=== PATIENT | female | born 1975 | race Caucasian/White ===

== ENCOUNTER 2017-06-30 23:15 | Emergency (ER) | payer SELFPAY ==
[~2017-06-30] VITALS: Ht 160 cm; Wt 72.7 kg
[2017-06-30] MEDS ORDERED: SUBO2MIS SL (23:23)
[2017-07-01] VITALS: BP 103/50; PULSE 74; RESP 18; O2SAT 98
--- NOTE | 2017-07-01 00:35 | PD ---
HPI Chief Complaint: Skin Problem Time Seen by Provider: 00:15 Travel History International Travel<30 days: No Contact w/Intl Traveler<30days: No Traveled to known affect area: No History of Present Illness HPI The patient is a 42 year old female who presents to the [facility] emergency department with a history of edema of her upper and lower extremities that has been gradually worsening over the last 2 months. She reports that she went to an emergency department approximately a week ago for evaluation and was told that she should take Lasix. The patient was concerned that she is dehydrated, therefore she did not take the prescription. She reports that she does not eat a well-balanced diet. She reports that she only drinks fluids when she eats, this is why she feels she is likely dehydrated. She denies having any vomiting or diarrhea. She reports that she last used injection drugs on Saturday. She reports that she used methamphetamine, cocaine, and Xanax. The patient reports that she has been tested for hepatitis and was negative. She reports that 10 years ago she had a abnormal thyroid testing done , however she never followed up regarding this. She denies having a primary care physician. She denies having any recent fevers, cough or congestion, neck pain, chest pain, shortness of breath, abdominal pain, urinary symptoms, or neurologic symptoms. [facility] Past Medical History Narrative Medical The patient's past medical history is significant for polysubstance abuse, history of thyroid disorder diagnosed 10 years ago without any follow-up, history of bipolar disorder. The patient reports a prior history of opiate abuse, however she quit using 8 years ago and is currently on Subutex. Bipolar Disorder: Yes Thyroid Disease: Yes Tetanus Vaccination: < 5 Years Influenza Vaccination: No ?: Not Past Surgical History Narrative Surgical The patient's past surgical history is reportedly none. Surgical History: No Previous Surgery Social History Alcohol Use: No Tobacco Use: Yes Substance Use: Yes (Meth, cocaine, Xanax) Allergies-Medications (Allergen,Severity, Reaction): Coded Allergies: amoxicillin (Verified Allergy, Unknown, 06/30/17) skin turns red Reported Meds & Prescriptions Reported Meds & Active Scripts Active Levothyroxine (Levothyroxine Sodium) 50 Mcg Tab 50 Mcg PO DAILY Reported Suboxone Sublingual Film (Buprenorphine-Naloxone Sublingual Film) 2-0.5 Mg Film 1 Film SL Unique ID number required: Review of Systems Except as stated in HPI: all other systems reviewed are Neg General / Constitutional: No: Fever Eyes: No: Visual changes HENT: No: Headaches Cardiovascular: Positive: Edema, No: Chest Pain or Discomfort, Dyspnea on exertion Respiratory: No: Shortness of Breath Gastrointestinal: No: Abdominal Pain Genitourinary: No: Dysuria Musculoskeletal: No: Pain Skin: No Rash Neurologic: No: Weakness, Focal Abnormalities, Change in Mentation, Slurred Speech, Sensory Disturbance Psychiatric: No: Depression Endocrine: No: Polydipsia Hematologic/Lymphatic: No: Easy Bruising Physical Exam Narrative General: The patient is a well-developed well-nourished female in no acute distress. Head and Neck exam: Head is normocephalic atraumatic. Eyes: EOMI, pupils are equal round and reactive to light. Nose: Midline septum with pink mucous membranes Mouth: Dentition unremarkable. Moist mucus membranes. Posterior oropharynx is not erythematous. No tonsillar hypertrophy. Uvula midline. Airway patent. Neck: No palpable lymphadenopathy. No nuchal rigidity. No thyromegaly. Cardiovascular: Regular rate and rhythm without murmurs, gallops, or rubs. Lungs: Clear to auscultation bilaterally. No wheezes, rhonchi, or rales. Abdomen: Soft, without tenderness to palpation in all 4 quadrants of the abdomen. No guarding, rebound, or rigidity. Normal bowel sounds are audible. No tenderness on palpation of McBurney's point. Negative Mackenzie sign. Extremities: No clubbing or cyanosis. The patient has trace edema in her hands bilaterally, 1+ edema in her legs bilaterally. No calf tenderness on palpation. 2+ pulses in all 4 extremities. Back: No spinous process tenderness to palpation. No costovertebral angle tenderness to palpation. Neurologic Exam: Cranial nerves II through XII are intact, strength is 5/5 in all 4 extremities, intact sensation over all dermatomes. The patient is alert and oriented to person, place, time, and situation. Skin Exam: No rash noted. Intact skin that is warm and dry. Data Data Last Documented VS Vital Signs Date Time Temp Pulse Resp B/P (MAP) Pulse Ox O2 Delivery O2 Flow Rate FiO2 07/01/17 00:57 18 98 Room Air 07/01/17 00:00 74 103/50 (67) Orders Orders Complete Blood Count With Diff (07/01/17 00:30) Comprehensive Metabolic Panel (07/01/17 00:30) Creatine Kinase (Cpk) (07/01/17 00:30) Ckmb (Isoenzyme) Profile (07/01/17 00:30) Troponin I (07/01/17 00:30) B-Type Natriuretic Peptide (07/01/17 00:30) Prothrombin Time / Inr (Pt) (07/01/17:30) Act Partial Throm Time (Ptt) (07/01/17 00:30) Lipase (07/01/17:30) Urinalysis - C+S If Indicated (07/01/17:30) Magnesium (Mg) (07/01/17:30) Chest, Single Ap (07/01/17:30) Iv Access Insert/Monitor (07/01/17 00:30) Ecg Monitoring (07/01/17 00:30) Oximetry (07/01/17 00:30) Ed Urine Pregnancytest Poc (07/01/17 00:30) Drug Screen, Random Urine (07/01/17 00:30) Alcohol (Ethanol) (07/01/17 00:30) Salicylates (Aspirin) (07/01/17 00:30) Tylenol (Acetaminophen) (07/01/17 00:30) Thyroid Stimulating Hormone (07/01/17 00:44) CKMB (07/01/17 00:44) CKMB% (07/01/17 00:44) Sodium Chlor 0.9% 1000 Ml Inj (Ns 1000 M (07/01/17 02:30) Levothyroxine (Synthroid) (07/01/17 02:30) Sodium Chlor 0.9% 1000 Ml Inj (Ns 1000 M (07/01/17 02:30) Labs Laboratory Tests Test 07/01/17 00:44 07/01/17 01:50 White Blood Count 10.2 TH/MM3 Red Blood Count 3.64 MIL/MM3 Hemoglobin 10.3 GM/DL Hematocrit 30.3 % Mean Corpuscular Volume 83.3 FL Mean Corpuscular Hemoglobin 28.3 PG Mean Corpuscular Hemoglobin Concent 33.9 % Red Cell Distribution Width 17.0 % Platelet Count 433 TH/MM3 Mean Platelet Volume 9.2 FL Neutrophils (%) (Auto) 57.6 % Lymphocytes (%) (Auto) 29.8 % Monocytes (%) (Auto) 7.4 % Eosinophils (%) (Auto) 4.1 % Basophils (%) (Auto) 1.1 % Neutrophils # (Auto) 5.9 TH/MM3 Lymphocytes # (Auto) 3.1 TH/MM3 Monocytes # (Auto) 0.8 TH/MM3 Eosinophils # (Auto) 0.4 TH/MM3 Basophils # (Auto) 0.1 TH/MM3 CBC Comment DIFF FINAL Differential Comment Urine Color YELLOW Urine Turbidity HAZY Urine pH 5.5 Urine Specific [place] 1.032 Urine Protein 30 mg/dL Urine Glucose (UA) NEG mg/dL Urine Ketones NEG mg/dL Urine Occult Blood NEG Urine Nitrite NEG Urine Bilirubin NEG Urine Urobilinogen 2.0 MG/DL Urine Leukocyte Esterase TRACE Urine RBC 1 /hpf Urine WBC 3 /hpf Urine Squamous Epithelial Cells 8 /hpf Urine Bacteria OCC /hpf Urine Mucus MANY /lpf Microscopic Urinalysis Comment CULT NOT INDICATED Blood Urea Nitrogen 19 MG/DL Creatinine 1.41 MG/DL Random Glucose 86 MG/DL Total Protein 10.4 GM/DL Albumin 4.1 GM/DL Calcium Level 8.8 MG/DL Magnesium Level 2.2 MG/DL Alkaline Phosphatase 120 U/L Aspartate Amino Transf (AST/SGOT) 118 U/L Alanine Aminotransferase (ALT/SGPT) 55 U/L Total Bilirubin 0.8 MG/DL Sodium Level 136 MEQ/L Potassium Level 4.3 MEQ/L Chloride Level 103 MEQ/L Carbon Dioxide Level 29.7 MEQ/L Anion Gap 3 MEQ/L Estimat Glomerular Filtration Rate 41 ML/MIN Total Creatine Kinase 1078 U/L Creatine Kinase MB 9.7 NG/ML Creatine Kinase MB % 0.9 % Troponin I LESS THAN 0.02 NG/ML B-Type Natriuretic Peptide 9 PG/ML Lipase 135 U/L Thyroid Stimulating Hormone 3rd Gen GREATER THAN 100.000 uIU/ML Salicylates Level 3.2 MG/DL Urine Opiates Screen NEG Acetaminophen Level LESS THAN 2.0 MCG/ML Urine Barbiturates Screen NEG Urine Amphetamines Screen POS Urine Benzodiazepines Screen POS Urine Cocaine Screen POS Urine Cannabinoids Screen NEG Ethyl Alcohol Level LESS THAN 3 MG/DL Prothrombin Time 11.6 SEC Prothromb Time International Ratio 1.1 RATIO Activated Partial Thromboplast Time 28.8 SEC MDM Medical Decision Making Medical Screen Exam Complete: Yes Emergency Medical Condition: Yes Medical Record Reviewed: Yes Interpretation(s) Last Impressions Chest X-Ray 07/01/17 0030 Signed Impressions: Service Date/Time: Saturday, July 01, 2017 00:47 - CONCLUSION: No acute disease. Elio Barkley MD Differential Diagnosis Congestive heart failure, versus renal failure, versus hypoalbuminemia, versus liver failure, versus hypothyroid disorder with myxedema Narrative Course During the course of the patient's emergency department visit, the patient's history, examination, and differential diagnosis were reviewed with the patient. The patient was placed on a bus driver/monitor with oximetry and frequent blood pressure monitoring. The patient had IV access obtained and blood work sent for analysis. The patient was initially provided normal saline 1 L IV fluid bolus which was repeated 1, levothyroxine 50 mcg p.o. 1 after TSH was noted to be elevated The patient's laboratory studies were reviewed and remarkable for a white count of 10.2, hemoglobin 10.3, platelets 433 with a normal differential, CMP is remarkable for an anion gap of 3, BUN 19, creatinine 1.41, AST 118, ALT 55, alk phos 120, CPK 1078 which is likely related to the patient's methamphetamine and cocaine use, however not diagnostic for rhabdomyolysis as this value is not 5 times the upper limits of normal. Troponin I is less than 0.02, BNP is 9, total protein 10.4, lipase 135, TSH greater than 100, PT 11.6, PTT 28.8, urinalysis is unremarkable, urine drug screen is positive for amphetamines, benzodiazepines, cocaine. Alcohol less than 3, acetaminophen less than 2, salicylate 3.2. Radiology studies were reviewed and remarkable for a chest x-ray that shows no acute cardiopulmonary disease. The patient has a history of IV drug use and was instructed regarding the possibility of hepatitis. She was instructed to follow-up with the local [place] clinic for additional testing. The patient will be given a prescription for levothyroxine which could be contributing to her edema. The patient is instructed to follow-up with a primary care physician in the next couple of days. The patient is resting comfortably and feels better, is alert and in no distress. The patient's results and examination findings were discussed with the patient. The repeat examination is unremarkable and benign. The history, exam, diagnostic testing, and current condition do not suggest any significant pathology to warrant further testing, continued ED treatment, admission, or surgical evaluation at this point. The vital signs have been stable. The patient does not have uncontrollable pain, intractable vomiting, or other significant symptoms. The patient's condition is stable and appropriate for discharge. The patient will pursue further outpatient evaluation with a primary care physician or other designated or consulting physician as indicated in the discharge instructions. The patient expressed understanding and was agreeable with this plan. Diagnosis Primary Impression: Hypothyroidism Qualified Codes: E03.9 - Hypothyroidism, unspecified Additional Impressions: Peripheral edema Elevated liver enzymes Referrals: [facility] 2 days Patient Instructions: Edema (ED), General Instructions, Hypothyroidism (ED) Additional Instructions: The patient was given an outpatient lab slip for viral hepatitis testing. Med/Other Pt SpecificInfo: Prescription(s) given Scripts Levothyroxine (Levothyroxine) 50 Mcg Tab 50 MCG PO DAILY for Thyroid, #30 TAB 0 Refills Prov: Sanjana Islas MD 07/01/17 Disposition: 01 DISCHARGE HOME Condition: Stable Sanjana Islas MD Jul 01, 2017 00:35
--- NOTE | 2017-07-01 00:53 | RADRPT ---
EXAM DATE/TIME: 07/01/2017 00:47 [facility] COMPARISON: No previous studies available for comparison. INDICATIONS : Chest pain x 1 month MEDICAL HISTORY : Thyroid disease SURGICAL HISTORY : None. ENCOUNTER: Initial ACUITY: 1 month PAIN SCORE: 7/10 LOCATION: Bilateral chest FINDINGS: The patient is rotated to the right which accentuates the cardiac silhouette. The lungs are clear. Th e osseous structures are intact. CONCLUSION: No acute disease. Elio Barkley MD on July 01, 2017 at 0:50 Board Certified Radiologist. This report was verified electronically.
[2017-07-01 00:57] VITALS: RESP 18; O2SAT 98
[2017-07-01 01:13] LABS: BACTERIA, URINE OCC /hpf; BILIRUBIN, URINE NEG (NEG); BLOOD, URINE NEG (NEG); GLUCOSE,URINE NEG (NEG); KETONE, URINE NEG (NEG); MUCUS URINE MANY /lpf (OCC); NITRITE,URINE NEG (NEG); PH, URINE 5.5 (5.0-8.5); SQUAMOUS EPITHELIAL CELL URINE 8 /hpf (0-5); URINE COLOR YELLOW (YELLW/STRAW); URINE LEUKOCYTE ESTERASE TRACE (NEG)
[2017-07-01 01:28] LABS: AUTOMATED NEUTROPHIL # 5.9 TH/MM3 (1.8-7.7); BASOPHIL # 0.1 TH/MM3 (0-0.2); BASOPHIL % 1.1 % (0.0-2.0); EOSINOPHIL # 0.4 TH/MM3 (0-0.4); EOSINOPHIL % 4.1 % (0.0-4.0); HEMATOCRIT 30.3 % (35.0-46.0); HEMOGLOBIN 10.3 GM/DL (11.6-15.3); LYMPH % 29.8 % (9.0-44.0); LYMPHOCYTE # 3.1 TH/MM3 (1.0-4.8); MEAN CELL VOLUME 83.3 FL (80.0-100.0); MEAN CORPUSCULAR HEMOGLOBIN 28.3 PG (27.0-34.0); MEAN CORPUSCULAR HGB CONC 33.9 % (32.0-36.0); MEAN PLATELET VOLUME 9.2 FL (7.0-11.0); MONO % 7.4 % (0.0-8.0); MONOCYTE # 0.8 TH/MM3 (0-0.9); NEUT % 57.6 % (16.0-70.0); PLATELET COUNT 433 TH/MM3 (150-450); RED BLOOD COUNT 3.64 MIL/MM3 (4.00-5.30); WHITE BLOOD COUNT 10.2 TH/MM3 (4.0-11.0)
[2017-07-01 01:44] LABS: ACETAMINOPHEN LESS THAN 2.0 MCG/ML (10.0-30.0); ALBUMIN 4.1 GM/DL (3.4-5.0); ALKALINE PHOSPHATASE 120 U/L (45-117); ALT (GPT) 55 U/L (10-53); AST (GOT) 118 U/L (15-37); BICARBONATE 29.7 MEQ/L (21.0-32.0); BLOOD UREA NITROGEN 19 MG/DL (7-18); CALCIUM 8.8 MG/DL (8.5-10.1); CHLORIDE 103 MEQ/L (98-107); CREATININE 1.41 MG/DL (0.50-1.00); GLOMERULAR FILTRATION RATE 41 ML/MIN (>89); GLUCOSE,RANDOM 86 MG/DL (74-106); MAGNESIUM 2.2 MG/DL (1.5-2.5); SODIUM (NA) 136 MEQ/L (136-145); TOTAL BILIRUBIN ADULT 0.8 MG/DL (0.2-1.0); TOTAL PROTEIN 10.4 GM/DL (6.4-8.2); TROPONIN I LESS THAN 0.02 NG/ML (0.02-0.05)
[2017-07-01 02:13] LABS: INTERNATIONAL NORMALIZED RATIO 1.1 RATIO; PROTHROMBIN TIME - PATIENT 11.6 SEC (9.8-11.6)
[2017-07-01] MEDS ORDERED: LEVO50TA4 PO (02:27)
[2017-07-01] MEDS ORDERED: SODIUM CHLOR 0.9% 1000 ML INJ 1,000 ML IV ONE ×2 (02:30)
[2017-07-01] MEDS ORDERED: LEVOTHYROXINE SODIUM 50 MCG TAB PO ONE (02:30)
== END 2017-07-01 03:51 | disposition home or self-care (01) ==
LOC: NEPE 23:15
DX: E03.9 Hypothyroidism, unspecified (principal); R60.0 Localized edema; R74.8 Abnormal levels of other serum enzymes; F15.90 Other stimulant use, unspecified, uncomplicated; F14.90 Cocaine use, unspecified, uncomplicated; F19.90 Other psychoactive substance use, unspecified, uncomplicated; F31.9 Bipolar disorder, unspecified; E07.9 Disorder of thyroid, unspecified; Z72.0 Tobacco use
CPT/HCPCS: 71045; 80053; 80307; 81001; 82550; 82552; 83690; 83735; 83880; 84443; 84484; 84703; 85025; 85610; 85730; 96360; 99284; J7030